=== PATIENT | female | born 1965 | race Caucasian/White ===

== ENCOUNTER 2021-08-06 09:25 | Emergency (ER) | payer OTHER ==
[~2021-08-06] VITALS: Ht 162.6 cm; Wt 88.5 kg
[2021-08-06 10:11] VITALS: BP 117/77
--- NOTE | 2021-08-06 11:07 | NUR ---
C/O L ANKLE , L FOOT PAIN, R KNEE PAIN S/P FALL X TODAY.
[2021-08-06] MEDS ORDERED: IBUP-2213 PO (12:30)
[2021-08-06] MEDS ORDERED: [UNRECOGNIZED DRUG - CODE] MC (12:31)
[2021-08-06 12:38] VITALS: BP 115/51
--- NOTE | 2021-08-06 12:38 | NUR ---
Patient discharged with v/s stable. Written and verbal after care instructions given and explained. Patient alert, oriented and verbalized understanding of instructions. Wheel Chair Assisted with steady gait. All questions addressed prior to discharge. ID band removed. Patient advised to follow up with PMD. Rx of IBUPROFEN AND CANE given. Patient educated on indication of medication including possible reaction and side effects. Opportunity to ask questions provided and answered.
== END 2021-08-06 12:38 | disposition home or self-care (01) ==
LOC: MED 09:25
DX: S93.402A Sprain of unspecified ligament of left ankle, initial encounter (principal); S80.01XA Contusion of right knee, initial encounter; Z79.899 Other long term (current) drug therapy; W01.0XXA Fall on same level from slipping, tripping and stumbling without subsequent striking against object, initial encounter; Y93.89 Activity, other specified; Y92.89 Other specified places as the place of occurrence of the external cause; Y99.8 Other external cause status
CPT/HCPCS: 73562; 73610; 73630; 99284

== ENCOUNTER 2022-04-02 10:47 | Emergency (ER) | payer OTHER ==
[~2022-04-02] VITALS: Ht 162.6 cm; Wt 83.9 kg
[~2022-04-02 10:47] MED LIST: IBUP-2213 PO; [UNRECOGNIZED DRUG - CODE] MC
[2022-04-02 10:52] VITALS: BP 115/68
--- NOTE | 2022-04-02 11:07 | NUR ---
walked in to ed c/o left lower abd pain onset 30 min ago while walking. describes pain as sharp and constant. denies nvd, denies fall or trauma. hx RA, denies any px. aaox3, ambulatory with cane, vss. urine and blood drawn.
[2022-04-02 11:23] LABS: BASOPHILS # (AUTO) 0.1 K/uL (0.00-0.22); BASOPHILS % (AUTO) 1.2 % (0.0-2.0); EOSINOPHILS # (AUTO) 0.3 K/uL (0-0.4); HEMATOCRIT 39.3 % (36-48); HEMOGLOBIN 13.2 g/dL (12.0-16.0); LYMPHOCYTES % (AUTO) 21.8 % (20.5-51.1); MEAN CORPUSCULAR HEMOGLOBIN 29 pg (27-31); MEAN CORPUSCULAR HGB CONC 34 g/dL (33-37); MEAN CORPUSCULAR VOLUME 85.5 fL (80-94); MONOCYTES # (AUTO) 0.6 K/uL (0.8-1.0); MONOCYTES % (AUTO) 6.6 % (1.7-9.3); NEUTROPHILS # (AUTO) 6.2 K/uL (1.8-7.7); NEUTROPHILS % (AUTO) 67.4 % (42.2-75.2); PLATELET COUNT (AUTO) 272 K/uL (140-450); WHITE BLOOD COUNT (AUTO) 9.1 K/uL (4.8-10.8)
--- NOTE | 2022-04-02 11:27 | NUR ---
us at bedside
[2022-04-02 11:46] LABS: APPEARANCE,URINE CLEAR (CLEAR); BILIRUBIN,URINE NEGATIVE (NEGATIVE); BLOOD, URINE TRACE-I (NEGATIVE); COLOR,URINE YELLOW (YELLOW); LEUKOCYTE ESTERASE ,URINE NEGATIVE (NEGATIVE); NITRITE, URINE NEGATIVE (NEGATIVE); PH,URINE 5.5 (5.0-9.0); UGLUCOSE NEGATIVE (NEGATIVE)
[2022-04-02 11:47] LABS: ALBUMIN 3.3 g/dL (3.4-5.0); ANION GAP 10.4 (8-16); CARBON DIOXIDE 27.4 mmol/L (21-32); POTASSIUM 3.8 mmol/L (3.5-5.1); TOTAL BILIRUBIN 0.2 mg/dL (0.0-1.0)
--- NOTE | 2022-04-02 12:40 | NUR ---
pt went to ct
--- NOTE | 2022-04-02 12:48 | NUR ---
pt back from ct
[2022-04-02 13:45] VITALS: BP 136/71
--- NOTE | 2022-04-02 13:50 | NUR ---
Patient discharged with v/s stable. Written and verbal after care instructions given and explained. Patient alert, oriented and verbalized understanding of instructions. Ambulatory with steady gait. All questions addressed prior to discharge. ID band removed. Patient advised to follow up with PMD. Patient educated on indication of medication including possible reaction and side effects. Opportunity to ask questions provided and answered.
== END 2022-04-02 13:50 | disposition home or self-care (01) ==
LOC: MED 10:47
DX: R10.32 Left lower quadrant pain (principal); R10.2 Pelvic and perineal pain; F31.9 Bipolar disorder, unspecified
CPT/HCPCS: 36415; 74176; 76856; 80053; 81003; 81025; 84703; 85025; 99284; Q0092

== ENCOUNTER 2024-03-13 06:15 | Emergency (ER) | payer OTHER ==
[~2024-03-13] VITALS: Ht 162.6 cm; Wt 93.4 kg
[2024-03-13 06:28] VITALS: BP 113/81; PULSE 112; RESP 16; TEMP 99.3; O2SAT 98
[2024-03-13] MEDS: NACL 0.9% 1,000 ML IV ONE (06:53)
[2024-03-13 06:56] LABS: BASOPHILS % (AUTO) 0.3 % (0.0-2.0); EOSINOPHILS # (AUTO) 0.1 K/uL (0-0.4); EOSINOPHILS % (AUTO) 0.3 % (0.0-4.0); HEMATOCRIT 44.8 % (36-48); HEMOGLOBIN 15.2 g/dL (12.0-16.0); LYMPHOCYTES # (AUTO) 0.3 K/uL (2.5-16.5); LYMPHOCYTES % (AUTO) 1.9 % (20.5-51.1); MEAN CORPUSCULAR HEMOGLOBIN 29 pg (27-31); MEAN CORPUSCULAR HGB CONC 34 g/dL (33-37); MONOCYTES # (AUTO) 0.5 K/uL (0.8-1.0); MONOCYTES % (AUTO) 2.9 % (1.7-9.3); NEUTROPHILS # (AUTO) 16.6 K/uL (1.8-7.7); NEUTROPHILS % (AUTO) 94.6 % (42.2-75.2); PLATELET COUNT (AUTO) 281 K/uL (140-450); RED BLOOD CELL COUNT(AUTO) 5.21 MIL/uL (4.20-5.40); RED CELL DISTRIBUTION WIDTH 12.8 % (11.6-13.7); WHITE BLOOD COUNT (AUTO) 17.5 K/uL (4.8-10.8)
[2024-03-13] MEDS: KETOROLAC 30 MG/ML VIAL IVP ONE (06:57)
[2024-03-13] MEDS: ONDANSETRON 4 MG/2 ML VIAL IVP ONE (06:58)
[2024-03-13 07:29] LABS: ALBUMIN 4.1 g/dL (3.4-5.0); ANION GAP 16.8 (8-16); CARBON DIOXIDE 23.4 mmol/L (21-32); CREATININE 1.2 mg/dL (0.6-1.3); POTASSIUM 4.2 mmol/L (3.5-5.1); TOTAL BILIRUBIN 0.6 mg/dL (0.0-1.0); TOTAL PROTEIN, SERUM 8.1 g/dL (6.4-8.2)
[2024-03-13 07:35] LABS: LACTIC ACID 1.2 mmol/L (0.4-2.0)
[2024-03-13] MEDS ORDERED: NACL 0.9% 1,000 ML IV ONE (08:50)
[2024-03-13] MEDS ORDERED: ONDA-188 SL (09:20)
[2024-03-13] MEDS ORDERED: IBUP-2213 PO (09:20)
[2024-03-13 09:28] VITALS: BP 106/74; PULSE 96; RESP 16; TEMP 99.1; O2SAT 95
[2024-03-13 10:04] LABS: APPEARANCE,URINE TURBID (CLEAR); BILIRUBIN,URINE NEGATIVE (NEGATIVE); BLOOD, URINE TRACE-I (NEGATIVE); COLOR,URINE YELLOW (YELLOW); LEUKOCYTE ESTERASE ,URINE NEGATIVE (NEGATIVE); NITRITE, URINE NEGATIVE (NEGATIVE); PROTEIN,URINE NEGATIVE (NEGATIVE); UGLUCOSE NEGATIVE (NEGATIVE); UROBILINOGEN,URINE 0.2 EU/dL (0.2 - 1)
[2024-03-13 10:18] LABS: BACTERIA,URINE 0-2 /HPF (None Seen); SQUAMOUS EPITHELIAL CELL,UR 0-3 (FEW) /LPF (0-3 (FEW)); WBC,URINE 0-5 /HPF (0-5)
[2024-03-13 10:19] LABS: URINE AMORPHOUS URATE 4+ /HPF (None Seen)
== END 2024-03-13 09:28 | disposition home or self-care (01) ==
LOC: MED 06:15
DX: A05.9 Bacterial foodborne intoxication, unspecified (principal); Z79.1 Long term (current) use of non-steroidal anti-inflammatories (NSAID); Z79.899 Other long term (current) drug therapy
CPT/HCPCS: 36415; 80053; 81001; 83605; 83690; 85025; 87040; 93005; 96361; 96374; 99284; J1885; J2405; J7030; 99283

== ENCOUNTER 2024-08-14 07:31 | Emergency (ER) | payer OTHER ==
[~2024-08-14] VITALS: Ht 162.6 cm; Wt 94.3 kg
[~2024-08-14 07:31] MED LIST changes: +ONDA-188 SL
[2024-08-14 07:35] VITALS: BP 111/57; PULSE 87; RESP 15; TEMP 98.2; O2SAT 95
== END 2024-08-14 08:52 | disposition home or self-care (01) ==
LOC: MED 07:31
DX: S90.32XA Contusion of left foot, initial encounter (principal); S80.02XA Contusion of left knee, initial encounter; F17.200 Nicotine dependence, unspecified, uncomplicated; Z79.899 Other long term (current) drug therapy; W22.8XXA Striking against or struck by other objects, initial encounter; Y93.89 Activity, other specified; Y92.89 Other specified places as the place of occurrence of the external cause; Y99.8 Other external cause status
CPT/HCPCS: 73630; 99283